=== PATIENT | male | born 1945 | race Caucasian/White ===

== ENCOUNTER 2018-01-14 12:17 | Emergency (ER) | payer MEDICARE ==
[~2018-01-14] VITALS: Ht 185.4 cm; Wt 107.5 kg
[~2018-01-14 12:17] MED LIST: ALBU90OI INH; AMLO5 PO; ATEN25 PO; BENZ100A PO; GUAI600T33 PO; HYDCHL12.5 PO; LISINOPRIL PO; ROSU10TA PO
[2018-01-14] MEDS ORDERED: METF500C PO (15:00)
[2018-01-14] MEDS ORDERED: TAMS.4ER PO (15:00)
[2018-01-14] MEDS ORDERED: METO50ER PO (15:01)
[2018-01-14] MEDS ORDERED: Omeprazole20 M1 (15:01)
[2018-01-14] MEDS ORDERED: ATOR40TA PO (15:01)
[2018-01-14] MEDS ORDERED: Percocet 10-321 EACH PO (15:02)
[2018-01-14] MEDS ORDERED: ASPI81CH PO (15:02)
== END 2018-01-14 15:42 | disposition home or self-care (01) ==
LOC: ER 12:17
DX: Z46.6 Encounter for fitting and adjustment of urinary device (principal); I10 Essential (primary) hypertension; E78.00 Pure hypercholesterolemia, unspecified; Z79.899 Other long term (current) drug therapy; Z79.84 Long term (current) use of oral hypoglycemic drugs; Z79.82 Long term (current) use of aspirin
CPT/HCPCS: 51798; 99282

== ENCOUNTER 2018-01-16 00:12 | Emergency (ER) | payer MEDICARE ==
[~2018-01-16] VITALS: Ht 185.4 cm; Wt 107.5 kg
[~2018-01-16 00:12] MED LIST changes: +ASPI81CH PO; +ATOR40TA PO; +METF500C PO; +METO50ER PO; +Omeprazole20 M1; +Percocet 10-321 EACH PO; +TAMS.4ER PO
[2018-01-16] MEDS ORDERED: BISA5EC PO (01:34)
[2018-01-16] MEDS ORDERED: CITRATE OF MAG296 ML PO (01:34)
== END 2018-01-16 02:38 | disposition home or self-care (01) ==
LOC: ER 00:12
DX: T83.091A Other mechanical complication of indwelling urethral catheter, initial encounter (principal); K59.00 Constipation, unspecified; I10 Essential (primary) hypertension; E78.00 Pure hypercholesterolemia, unspecified; Z79.899 Other long term (current) drug therapy; Z79.82 Long term (current) use of aspirin
CPT/HCPCS: 51700; 99283

== ENCOUNTER → 2018-04-24 | Outpatient (CLI) | payer MEDICARE ==
[~2018-04-24] MED LIST changes: +BISA5EC PO; +CITRATE OF MAG296 ML PO
[2018-04-24 10:07] LABS: Source, Urine Clean Catch
[2018-04-24 10:26] LABS: Red Blood Cells, Urine 25-50 /hpf (0-2); White Blood Cells, Urine TNTC /hpf (0-5)
[2018-04-24 10:27] LABS: Bacteria Many /hpf; Squamous Epithelial Cells Few /hpf (Few)
== END ==
LOC: LAB SHORT 10:05 → LAB EV 10:05
PROVIDERS: Physician Assistant
DX: R30.0 Dysuria (principal)
CPT/HCPCS: 81015; 87086

== ENCOUNTER 2019-07-14 11:54 | Day surgery (SDC) | payer MEDICARE ==
[~2019-07-14] VITALS: Ht 185.4 cm; Wt 110.6 kg
[~2019-07-14 11:54] MED LIST changes: +ALLEGRA ALLERG180 MG PO; +ATEN100 PO; +Afrin15 ML; +Lipitor20 MG PO; +METO25 PO; +NASACORT10.8 ML; +Nexium40 MG PO; +ZESTORETIC 20-251 EA PO; +[UNRECOGNIZED DRUG - OTHER] NS
[2019-07-14] MEDS ORDERED: METF500 (12:39)
[2019-07-14] MEDS ORDERED: HYDCHL12.5 (12:39)
--- NOTE | 2019-07-14 14:14 | NUR ---
07/14/19 1414 Hair Steinberg PT O2 SAT DECREASES TO 87%, PT SNORING LOUDLY. OPA ORAL AIRWAY PLACED AT 1411. SNORING STOPS, O2 SAT UP TO MID TO HIGH 90S.
== END 2019-07-14 15:48 | disposition home or self-care (01) ==
LOC: ORSCSDS 11:54
PROVIDERS: Internal Medicine Gastroenterology
PROC: 0DBH8ZX Excision of Cecum, Via Natural or Artificial Opening Endoscopic, Diagnostic (ICD-10-PCS; principal; 2019-07-14 13:30)
PROC: 0DBK8ZX Excision of Ascending Colon, Via Natural or Artificial Opening Endoscopic, Diagnostic (ICD-10-PCS; principal; 2019-07-14 13:30)
PROC: 0DBN8ZX Excision of Sigmoid Colon, Via Natural or Artificial Opening Endoscopic, Diagnostic (ICD-10-PCS; principal; 2019-07-14 13:30)
PROC: 0DBL8ZX Excision of Transverse Colon, Via Natural or Artificial Opening Endoscopic, Diagnostic (ICD-10-PCS; principal; 2019-07-14 13:30)
DX: Z12.11 Encounter for screening for malignant neoplasm of colon (principal); Z86.010 Personal history of colon polyps; D12.3 Benign neoplasm of transverse colon; D12.0 Benign neoplasm of cecum; D12.2 Benign neoplasm of ascending colon; D12.5 Benign neoplasm of sigmoid colon; K57.30 Diverticulosis of large intestine without perforation or abscess without bleeding; K64.8 Other hemorrhoids; I10 Essential (primary) hypertension; Z79.899 Other long term (current) drug therapy; Z87.891 Personal history of nicotine dependence
CPT/HCPCS: 82947; 88305; J2704; J7120

== ENCOUNTER 2020-07-16 07:02 | Day surgery (SDC) | payer OTHER ==
[~2020-07-16] VITALS: Ht 185.4 cm; Wt 109.5 kg
[~2020-07-16 07:02] MED LIST changes: +HYDCHL12.5; +HYDCHL25 PO; +LISI20 PO; +METF500; +OMEP20ER PO
[2020-07-16] MEDS ORDERED: Aspirin EC81 MG (07:29)
== END 2020-07-16 09:41 | disposition home or self-care (01) ==
LOC: ORSCSDS 07:02
PROVIDERS: Internal Medicine Gastroenterology
PROC: 0DBL8ZX Excision of Transverse Colon, Via Natural or Artificial Opening Endoscopic, Diagnostic (ICD-10-PCS; principal; 2020-07-16 08:45)
DX: Z86.010 Personal history of colon polyps (principal); D12.3 Benign neoplasm of transverse colon; I10 Essential (primary) hypertension; K64.8 Other hemorrhoids; Z79.899 Other long term (current) drug therapy
CPT/HCPCS: 88305; J0330; J0461; J2405; J2704; J7120

== ENCOUNTER 2023-06-28 11:34 | Emergency (ER) | payer OTHER ==
[~2023-06-28] VITALS: Ht 185.4 cm; Wt 113.4 kg
[~2023-06-28 11:34] MED LIST changes: +Aspirin EC81 MG
[2023-06-28 11:49] VITALS: BP 143/85
[2023-06-29] MEDS ORDERED: POTA10T PO (21:41)
[2023-06-29] MEDS ORDERED: OLMESARTAN MEDO40 MG PO (21:41)
[2023-06-29] MEDS ORDERED: CHLO25B PO (21:42)
[2023-06-29] MEDS ORDERED: TERA5 PO (21:42)
[2023-06-29] MEDS ORDERED: CEFP200 PO (22:12)
== END 2023-06-28 13:19 | disposition home or self-care (01) ==
LOC: ER 11:34
DX: S09.90XA Unspecified injury of head, initial encounter (principal); W19.XXXA Unspecified fall, initial encounter; I10 Essential (primary) hypertension; Z79.899 Other long term (current) drug therapy; Z79.84 Long term (current) use of oral hypoglycemic drugs; Z79.82 Long term (current) use of aspirin
CPT/HCPCS: 70450; 99284-25

== ENCOUNTER 2023-06-29 18:02 | Emergency (ER) | payer OTHER ==
[~2023-06-29] VITALS: Ht 182.9 cm; Wt 113.4 kg
[2023-06-29 19:14] LABS: Source, Urine Clean Catch
[2023-06-29 19:22] LABS: BASOPHILS ABSOLUTE AUTO 0.05 K/mm3 (0.00-0.23); BASOPHILS PERCENT AUTO 1 % (0-2); EOSINOPHILS ABSOLUTE AUTO 0.19 K/mm3 (0.00-0.68); EOSINOPHILS PERCENT AUTO 2 % (0-6); Hematocrit 37.3 % (37.0-53.0); Hemoglobin 12.9 g/dL (13.5-17.5); IMMATURE GRAN ABSOLUTE AUTO 0.02 K/mm3 (0.00-0.10); IMMATURE GRAN PERCENT AUTO 0 % (0-1); LYMPHOCYTES PERCENT AUTO 19 % (21-46); MONOCYTES ABSOLUTE AUTO 0.85 K/mm3 (0.16-1.47); MONOCYTES PERCENT AUTO 11 % (4-13); Mean Corpuscular HGB 30.9 pg (26.0-34.0); Mean Corpuscular HGB Conc 34.6 g/dL (31.5-36.5); Mean Corpuscular Volume 89 fL (80-100); NEUTROPHILS PERCENT AUTO 68 % (41-73); Platelet Count 193 K/mm3 (150-400); RDW Coefficient Variation 13.5 % (11.7-14.2); RDW Standard Deviation 44.2 fL (35.1-46.3); Red Blood Cell Count 4.18 M/mm3 (4.30-5.90); White Blood Cell Count 8.01 K/mm3 (4.00-11.30)
[2023-06-29 19:41] LABS: Albumin, Blood 3.2 g/dL (3.4-5.0); Albumin/Globulin Ratio 0.7 (0.8-1.8); Bilirubin, Total 0.8 mg/dL (0.1-1.0); Bun/Creatinine Ratio 17.1 (12.0-20.0); Calcium, Blood 9.3 mg/dL (8.5-10.1); Creatinine, Blood 1.52 mg/dL (0.60-1.20); Globulin, Blood 4.6 g/dL (2.2-4.0); Potassium, Blood 3.6 mmol/L (3.5-5.5); Total Protein, Blood 7.8 g/dL (6.4-8.2)
[2023-06-29 20:14] LABS: Appearance, Urine Cloudy (Clear); Bilirubin, Urine Neg (Neg); Blood, Urine 2+ (Neg); Color, Urine Yellow (P-Yellow); Glucose Qualitative, Urine Neg (Neg); Ketones, Urine Neg (Neg); Leukocyte Esterase, Urine 3+ (Neg); Nitrite, Urine Pos (Neg); Protein, Urine 2+ (Neg); Specific Gravity, Urine 1.015 (1.003-1.022); Urobilinogen, Urine NORM (Normal)
[2023-06-29 20:26] LABS: Bacteria Many /hpf; Mucus Light (0-Heavy); Red Blood Cells, Urine 0-2 /hpf (0-2); Squamous Epithelial Cells Few /hpf (Few); Transitional Epithelial Cells Rare /hpf (0-Rare); White Blood Cells, Urine TNTC /hpf (0-5)
[2023-06-29] MEDS ORDERED: POTA10T PO (21:41)
[2023-06-29] MEDS ORDERED: OLMESARTAN MEDO40 MG PO (21:41)
[2023-06-29] MEDS ORDERED: CHLO25B PO (21:42)
[2023-06-29] MEDS ORDERED: TERA5 PO (21:42)
[2023-06-29 21:46] VITALS: BP 139/83
[2023-06-29] MEDS ORDERED: CEFP200 PO (22:12)
== END 2023-06-29 22:18 | disposition home or self-care (01) ==
LOC: ER 18:02
PROVIDERS: Emergency Medicine
DX: N39.0 Urinary tract infection, site not specified (principal); I10 Essential (primary) hypertension; Z79.899 Other long term (current) drug therapy; Z79.82 Long term (current) use of aspirin
CPT/HCPCS: 80053; 81001; 85025; 87077; 87086; 87186; 93005; 93010; 99283-25; A9270

== ENCOUNTER → 2023-09-22 | Outpatient (CLI) | payer OTHER ==
[~2023-09-22] MED LIST changes: +CEFP200 PO; +CHLO25B PO; +OLMESARTAN MEDO40 MG PO; +POTA10T PO; +TERA5 PO
[2023-09-22 15:44] LABS: Source, Urine Clean Catch
[2023-09-22 15:49] LABS: Appearance, Urine Clear (Clear); Bilirubin, Urine Neg (Neg); Blood, Urine Neg (Neg); Color, Urine Yellow (P-Yellow); Glucose Qualitative, Urine Neg (Neg); Ketones, Urine Neg (Neg); Leukocyte Esterase, Urine 2+ (Neg); Nitrite, Urine Pos (Neg); Protein, Urine 1+ (Neg); Urobilinogen, Urine NORM (Normal)
[2023-09-22 15:58] LABS: Bacteria Many /hpf; Squamous Epithelial Cells Rare /hpf (Few); White Blood Cells, Urine 25-50 /hpf (0-5)
== END | disposition home or self-care (01) ==
LOC: LAB SHORT 13:57 → LAB 13:57
PROVIDERS: Hospitalist
DX: I10 Essential (primary) hypertension (principal)
CPT/HCPCS: 81001; 87077; 87086; 87186